=== PATIENT | female | born 1975 | race Caucasian/White ===

== ENCOUNTER → 2017-07-28 07:31 | Outpatient (CLI) | payer OTHER, SELFPAY ==
--- NOTE | 2017-07-28 07:33 | CT_ITS ---
STUDY: CT SCAN HIP LEFT REASON FOR EXAM: Female, 41 years old. Left hip dysplasia and prior surgeries. RADIATION DOSAGE (If Supplied By Facility): CTDIvol = ( 13.23 ) mGy, DLP = ( 422.75 ) mGycm. Individualized dose optimization techniques were used for this CT.? TECHNIQUE: Multiple axial tomographic images of the left hip joint were obtained without intravenous contrast administration. Coronal and sagittal reconstruction was obtained. 3-D rendering of the hip was obtained as well. COMPARISON: None. FINDINGS: There is cephalic migration of the proximal left femur. There is evidence of a neoacetabulum along the lateral aspect of the left iliac bone. Marked degree of degenerative changes of the femoral head with subchondral geodes and the marginal degenerative spur formation. Subchondral sclerosis of the left iliac bone. Screw fixation is seen in the proximal shaft of the left femur. CT/Extremity Lower without Contra IMPRESSION: Cephalic migration of the proximal left femur with a medial acetabulum formation along the lateral aspect of the left ilium with a marked degree of joint space narrowing and subchondral sclerosis and geode formation. Marginal osteophytes seen along the femoral head. Electronically Signed: Clifton Noel MD at 12:38 EDT Tel [phone], Service support ,
--- NOTE | 2017-07-28 07:34 | CT_ITS ---
STUDY: CT PELVIS WITHOUT CONTRAST REASON FOR EXAM: Female, 41 years old. Left hip dysplasia. RADIATION DOSAGE (If Supplied By Facility): CTDIvol = ( 28.21 ) mGy, DLP = ( 915.79 ) mGycm TECHNIQUE: Transaxial imaging of the pelvis was performed with oral contrast, and without intravenous administration of contrast material. Individualized dose optimization techniques were used for this CT. COMPARISON: None. FINDINGS: Normal urinary bladder. Normal visualized small intestine. Normal visualized colon. There is no pelvic fluid. There is no pelvic mass lesion or lymphadenopathy. Normal visualized pelvic arteries. Normal abdominal wall. Cephalic migration of the proximal left femur and dislocation of the hip joint. Marked degree of degenerative changes of the left femoral head and the medial acetabulum along the lateral aspect of the body of the left iliac bone. There is evidence of a degenerative spur formation as well as subchondral geodes. CT/Pelvis without IV Contrast IMPRESSION: Deformity of the proximal left femur with a cephalic dislocation and the neoacetabulum formation with marked degree of degenerative changes of the left hip. Electronically Signed: Clifton Noel MD at 12:41 EDT Tel [phone], Service support ,
--- NOTE | 2017-07-28 08:37 | CT_ITS ---
STUDY: CT SCAN HIP LEFT REASON FOR EXAM: Female, 41 years old. Left hip dysplasia and prior surgeries. RADIATION DOSAGE (If Supplied By Facility): CTDIvol = ( 13.23 ) mGy, DLP = ( 422.75 ) mGycm. Individualized dose optimization techniques were used for this CT.? TECHNIQUE: Multiple axial tomographic images of the left hip joint were obtained without intravenous contrast administration. Coronal and sagittal reconstruction was obtained. 3-D rendering of the hip was obtained as well. COMPARISON: None. FINDINGS: There is cephalic migration of the proximal left femur. There is evidence of a neoacetabulum along the lateral aspect of the left iliac bone. Marked degree of degenerative changes of the femoral head with subchondral geodes and the marginal degenerative spur formation. Subchondral sclerosis of the left iliac bone. Screw fixation is seen in the proximal shaft of the left femur. CT/Coronals Sag Multi Obl 3-D Rec IMPRESSION: Cephalic migration of the proximal left femur with a medial acetabulum formation along the lateral aspect of the left ilium with a marked degree of joint space narrowing and subchondral sclerosis and geode formation. Marginal osteophytes seen along the femoral head. Electronically Signed: Clifton Noel MD at 12:38 EDT Tel [phone], Service support ,
== END ==
PROVIDERS: Family Provider Preventive Medicine Occupational Medicine; PCP Preventive Medicine Occupational Medicine; Visit Provider Specialist
DX: M16.32 Unilateral osteoarthritis resulting from hip dysplasia, left hip (principal)
CPT/HCPCS: 72192; 73700; 76377

== ENCOUNTER → 2017-09-29 10:15 | Outpatient (CLI) | payer OTHER, SELFPAY ==
--- NOTE | 2017-09-29 10:20 | RAD_ITS ---
STUDY: LEG LENGTH STUDY REASON FOR EXAM: Female, 42 years old. Osteoarthritis resulting from left hip dysplasia TECHNIQUE: Frontal views of the lower extremities were obtained with measurement markers in place. COMPARISON: CT 07/28/2017 FINDINGS: On the right, the lower extremity from the upper aspect of the femoral head to the tibial plafond measures 80 cm. On the left, the lower extremity from the upper aspect of the femoral head to the tibial plafond measures 81 cm. However, from the level of the contralateral upper femoral head to the level of the ipsilateral tibial plafond, the measurement is 75.5 cm. Hardware in the proximal left femur. Dysplasia of the left femoral head and neck. Chronic superior displacement with ischial pseudoarticulation above the acetabulum. RAD/Bone Length IMPRESSION: As above. Electronically Signed: Louis Castro MD at 4:03 EDT Tel , Service support ,
== END ==
PROVIDERS: Family Provider Preventive Medicine Occupational Medicine; PCP Preventive Medicine Occupational Medicine; Visit Provider Specialist
DX: M16.32 Unilateral osteoarthritis resulting from hip dysplasia, left hip (principal)
CPT/HCPCS: 77073

== ENCOUNTER 2017-10-06 10:31 | Inpatient (IN) | payer OTHER, SELFPAY ==
[2017-09-20 14:59] VITALS: BP 136/91; PULSE 91; RESP 16; TEMP 36.9; O2SAT 99; BMI 30.5
--- NOTE | 2017-09-20 15:23 | SDCEKG_ITS ---
Test Reason : Blood Pressure : / mmHG Vent. Rate : 078 BPM Atrial Rate : 078 BPM P-R Int : 170 ms QRS Dur : 086 ms QT Int : 358 ms P-R-T Axes : 056 047 010 degrees QTc Int : 408 ms Normal sinus rhythm Normal ECG Confirmed by THOM ROMERO, JOSÉ MANUEL ([id number]), film and video editor JUANA MILLER ([id number]) on 09/22/2017 2:37:05 PM Referred By: Alonso Gillespie Confirmed By:JOSÉ MANUEL TOMAS MD
[2017-09-20 15:53] LABS: Absolute Lymphocyte Count 1.42 X10^3/ul (0.83-4.51); Absolute Neutrophil Count 4.4 X10^3/uL (2.0-7.7); Basophil# 0.01 X10^3/uL; Basophil% 0.2 % (0-1); Eosinophils% 1.6 % (0-5); Hematocrit 38.7 % (37-47); Hemoglobin 12.4 g/dl (12.0-15.0); Lymphocyte # 1.42 X10^3/ul (4.0); Lymphocyte % 22.6 % (19-41); Mean Corpuscular Hgb 27.1 pg (27.0-32.0); Mean Corpuscular Volume 84.7 fL (81-99); Mean Platelet Vol. 10.6 fl (6.2-12.0); Monocyte# 0.41 X10^3/uL; Monocyte% 6.5 % (0-10); Neutrophil # 4.35 X10^3/uL (2.7-7.7); Neutrophil % 69.1 % (47-70); Platelet Count 252 K/mm3 (150-450); RBC Distribution Width CV 13.9 % (11.6-14.6); RBC Distribution Width SD 43.3 fl (35.1-43.9); Red Blood Count 4.57 M/mm3 (4.2-5.4); White Blood Count 6.3 K/mm3 (4.4-11.0)
[2017-09-20 15:58] LABS: Anion Gap 6 (5-15); BUN 9 mg/dL (7-18); BUN/Creat Ratio 16.2 RATIO (10-20); Calcium,Total 8.8 mg/dL (8.5-10.1); Chloride 106 mmol/L (98-107); Creatinine, Serum 0.55 mg/dL (0.55-1.02); EST Glomerular Filtration Rate 129 mL/min (>60); Est Glom Filt Rate - Afr Amer 156 mL/min (>60); Estimated Creatinine Clearance 107.54 ml/min; Glucose 88 mg/dL (74-106); Potassium 4.1 mmol/L (3.5-5.1); Sodium Level 139 mmol/L (136-145)
[2017-09-20 16:04] LABS: POSITIVE COUNT NO; POSITIVE DIFFERENTIAL NO; POSITIVE MORPHOLOGY NO
--- NOTE | 2017-09-23 10:39 | PCM.HP.BLA ---
History and Physical DATE OF SURGERY: 10/06/2017 SCHEDULED PROCEDURE: Left total hip arthroplasty, posterior approach HISTORY OF PRESENT ILLNESS: This is a 42-year-old female who is been having ongoing pain in her left hip since . Patient was born with hip dysplasia and has gone under multiple surgeries as a child. Patient states her pain is constant, aching, sharp, and sore. The pain is dependent upon the activity and weather. She does report pain going up and down stairs, walking any amount of distance, and sitting for extended periods of time. Patient does report pain but complains more of lack of function and has difficult time with activities of daily living. Patient has difficult time tying her shoes bathing and showering, and difficulty of bending at the left hip. Patient does have start up pain. Pain is located in the left groin. Patient does note the left leg is shorter than the right. She has used a shoe lift in the past. Patient has tried conservative measures consisting of rest, heat, and elevation with temporary relief. Patient has been through physical therapy after previous surgeries as well as continued with home exercises. She has tried oral medications consisting of Advil which she has not seen any significant relief. She is also tried Tylenol with no significant relief. Patient has tried orthotics and shoe lift with no relief in symptoms. Patient currently denies any chest pain, shortness of breath, fevers chills, or recent infections. She has undergone CT scan of the hip. After failing conservative measures and discussing all treatment options with Dr. Gillespie, the patient would like to proceed with a left total hip arthroplasty posterior approach. We are obtaining surgical clearance from her primary care physician Dr. Brambila. Patient does not have any significant medical history. REVIEW OF SYSTEMS: ROS: Const: Denies change in appetite, fever, hard of hearing, vision problems and weight change CV: Denies chest pain, heart murmur, irregular heartbeat and peripheral vascular disease. Resp: Denies asthma, cough, pneumonia, sleep apnea, SOB, tuberculosis and wheezing. GI: Denies constipation, diarrhea, difficulty swallowing, heartburn, nausea, bloody stools and vomiting. : . (F Genital Sx) Urinary: denies incontinence. Musculo: Reports trouble walking, but denies leg swelling, limp and weakness. Skin: Denies Raynaud's, history of shingles and tattoo. Neuro: Denies ambulatory dysfunction, dizziness, numbness/tingling and tremor. Psych: Denies anxiety, depression, insomnia, mental illness and stress. Omari/Lymph: Denies anemia, bleeding/bruising tendency and past transfusion. Reviewed, no changes. PAST MEDICAL HISTORY: Advance Care Plan: No Advance Directives Effective Date: 12/22/2016 PMH: Medical Problems: Arthritis LT Hip Dysphasia - AT Accidents: None Surgical Hx: Tonsils & Adenoids - (1986) [facility] LT Hip Surgeries - (1980) PLATES/SCREWS RT Knee - TO STOP GROWTH RT Breast Lump Removed Anesthesia Complications: Vomiting Assistive Devices: Glasses Reviewed, no changes. SOCIAL HISTORY: SH: Marital: .Occupation: [employer].Work Status: Currently Working.Hand Dominance: Right-handed. Personal Habits: Smoking: Patient has never smoked.Cigarette Use: Never Smoked Cigarettes.Alcohol: Occasionally.Drug Use: Denies Use.Enjoy Exercising: Exercises 1-3 X/Week. Reviewed and updated. VITALS: Ht: 6.5 Wt: 173lb Wt k.473 BMI: 2878.6 BP: 150/86 Pulse: 70 Resp: 16 T: 9.1 T: -12.7C ALLERGIES: No Known Drug Allergy MEDICATIONS: No Active Medications PRE-OP EXAM: General appearance:NORMAL Other: Eyes: Conjunctivae and lids: NORMAL Pupils: ERR Ears, Nose, Mouth, and Throat: NORMAL Other: Inspection of lips, teeth and gums: NORMAL Other: Neck: Examination of neck: no masses noted. Respiratory: Assessment of respiratory effort: NORMAL Other: Auscultation of lungs: clear to auscultation no wheezes, rhonchi or rales. Cardiovascular: Auscultation of heart: regular rate and rhythm, no murmurs, gallops or rubs. Exam of carotid arteries: NORMAL Other: Gastrointestinal: Exam of abdomen: soft, nontender, nondistended bowel sounds present. PHYSICAL EXAMINATION: Patient walks with an antalgic gait. Previous incisions on the left hip are well-healed with no evidence of any erythema or signs of infection. Hip flexion is limited as well as internal and external rotation. Patient does have a 2 cm leg length discrepancy on the left. Sensations intact light touch. IMAGING STUDIES: 1. 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 There is previous hardware in the proximal femoral shaft subtrochanteric area. 2. CT scan was obtained at [facility] which does reveal type for Angeline dysplasia. There does appear to be adequate bone stock for acetabular component. There is anterior lateral plate which will need to be removed on the femur. IMPRESSION: 1. 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 Gillespie did discuss and review with the patient all treatment options including surgical versus nonsurgical. Patient wishes to proceed with above-stated procedure. Potential risks, benefits, and complications of this procedure were discussed in detail including but not limited to , infection, nerve and blood vessel damage, persistent pain, numbness, tingling, paresthesias, blood clot, pulmonary embolism, and requirement for further surgery. The patient expressed full understanding has no further questions for the doctor. Patient does agree to proceed with the above-stated procedure and has signed the surgery consent form. ___ I have re-examined the patient. There are no clinical changes since date of exam. ___ See progress notes for changes. ___ Dictated on admission Date: Time: Signature:
--- NOTE | 2017-10-01 15:24 | CASEMGMT ---
Addendum entered by Gregoria Stiles 10/01/17 16:06: Patient return call. Patient states that she has a walker and raised toilet seat at home. Patient lives with in a ranch style home with 2 steps to enter. Patient states that she is setup with [facility] for outpatient therapy with providing transportation. Original Note: GLENDY PÉREZ attempted to call patient regarding discharge needs after upcoming surgery. No answer, voice message left with return contact information. Per patient pre-admission assessment, patient wishes to return home with assistance from . GLENDY PÉREZ will follow up with patient after surgery and will assist with discharge needs.
[2017-10-06] VITALS (10 sets, daily range): BP systolic 93–213; BP diastolic 62–180; PULSE 84–114; RESP 16–22; TEMP 35.8–37.4; O2SAT 96–100; BMI 32.1
[2017-10-06] MEDS: Acetaminophen 500 MG Tablet 1000 MG PO ×2 (11:45→23:20)
[2017-10-06] MEDS: oxyCODONE HCl Cr 10 MG Tablet PO (11:46)
[2017-10-06] MEDS: Celecoxib 200 MG Capsule 400 MG PO (11:46)
[2017-10-06 12:18] LABS: Internal QC Validated? YES +Cl - CLEAR BKGD; Pregnancy, Urine Negative Negative
--- NOTE | 2017-10-06 13:15 | OP.PCM_ITS ---
Report of Operation Date of Procedure: 10/06/17 Pre-Operative Diagnosis: Secondary left hip osteoarthritis, dysplasia. Lower extremity leg length discrepancy Post-Operative Diagnosis: Secondary left hip osteoarthritis, dysplasia. Left lower extremity leg length discrepancy Surgery/Procedure Performed:: 1. Left hip conversion of previous hip surgery to total hip replacement, posterior approach. 2. Left femur subtrochanteric osteotomy Description of Surgical Findings:: Well reduced hip with 2 cm subtrochanteric osteotomy linux network administrator: Blue Gannon Type of Anesthesia:: Spinal Anesthesiologist: Moris Ortiz Special Medications: 2 g Ancef, 1 g TXA at incision, 1 g TXA closure, 10 mg Decadron, joint cocktail (5 mg Duramorph, 30 mL of 0.5% Ropivicaine, 1000 units of epinephrine, 30 mg of Toradol) Specimen's removed: Bony cuts Estimated Blood Loss (mL): 750 Fluids Replaced: 3000 mL crystalloid, 290 mL Cell Saver Description of Procedure: Findings: Adequate reduction with stability of the hip and equal leg lengths measured intraoperatively. Components used: 1. ExacTech series M 11 mm distal stem, 21 mm small body, -5 12/14 taper low offset neck 2. Roque trident 46 mm acetabular shell 2 screws 3. Roque X3 polyethylene liner, alpha code c 4. ExacTech Biolox delta ceramic 28 mm, -5 mm femoral head Brief history operative indications: 82-year-old female presented to my office with history of left hip dysplasia previous femoral osteotomy. Patient had severe arthrosis and nightmute type IV dysplasia. She has a scanogram radiograph which was consistent with 4.5 cm leg length discrepancy. Risks and benefits were discussed with the patient which included but were not limited to blood loss, DVTs, PEs, infection, neurovascular damage, and dislocation. In particular we discussed with this patient the risk of nerve injury with over lengthening her leg. At this time we have elected to proceed with a subtrochanteric osteotomy. In light of all this patient did agree to proceed with a total hip arthroplasty. Procedure: On the date of procedure the patient's L hip was marked in the preoperative area. Patient was then taken back to the operating room where anesthesia assumed control of the C-spine and airway and administered anesthetic. Patient was transferred to the operating table and placed in the lateral decubitus position with the affected hip up. The patient was secured in the bed with the lateral positioners and leg lengths were checked. The L lower extremity was then prepped out in a sterile fashion using chlorhexidine while the surgeon scrubbed. Upon reentering the room the L lower extremity was draped in the standard orthopedic fashion and the incision was marked. A timeout was called and everyone agreed upon the side, the site, the procedure be performed, antibiotics given, and patient's identity. At this time incision was made through skin, subcutaneous tissue, and fat down to fascia. The fascia was then incised and a Charley retractor was placed. The soft tissue was then cleared from the posterior external rotators and the piriformis was identified. Piriformis was taken down and tagged. The remainder of the short external rotators were taken down. Capsulotomy was made and the posterior capsule was tagged. The retractors were then placed inside the capsule. The femoral neck was identified and a cleanup cut was made. At this time a power corkscrew was used to remove the femoral head. At this time all bony debris was removed from the acetabulum. Attention was then turned to the femur where the proximal femur was appropriately exposed using a jones retractor. We then directed our attention to the proximal femur and retracted the vastus lateralis anteriorly in order to remove the anterior lateral plate. Osteotome was used to expose the plate and once a 4 screws were identified they were removed using the hex head screwdriver. Plate was then removed using an osteotome. At this time we directed our attention back towards the proximal femur where we reamed to 11.5 mm for an 11 mm stem. We then prepared the proximal femur for the 21 mm small body machining the metaphysis. Once this was completed a trial was placed to ensure a good fit. Trial was then removed and our attention was directed towards the acetabulum. Our attention was then directed to the acetabulum and the anterior retractor was placed and a Zelpi was used to retract the posterior capsule superiorly. True acetabulum was identified and all soft tissue debris was removed from the pulvinar and labrum of the joint. 5 x-ray was used to verify a true acetabulum and we again reaming. The acetabulum was then sequentially reamed to a 45 millimeters. At this time a and 46 mm Adamant trident cup was opened and impacted into place. The Au Franc guide was then used to verify the position of the cup once we verified it was in appropriate anteversion and abduction live x-ray was also used to verify position of the cup. 2 screws were placed in the safe zone and the acetabular liner was impacted into place. Once it was securely fastened our attention was again turned towards the femur where using our preoperative template and judging for the reduction of the joint we elected to proceed with a 2 cm transverse osteotomy. Once we made the osteotomy a clamshell osteotomy was made at the bone. The trial components were then put in place after cerclage wire was placed over the distal portion of the osteotomy proximally and the distal portion was reamed in preparation for the entire stem. The hip was properly reduced using traction and external rotation. Mesa of the hip took several attempts with sequential releases each time we attempted a reduction. Stability was checked with the appropriate amount of shuck, no impingement with external rotation, and stable at 90? flexion and 90? internal rotation. Leg lengths were checked and were found to be centimeter different on the table. Once the hip was determined to be stable the trial components were dislocated. The proximal femur was again exposed and the components were removed from the wound. The final components were verified and opened. The wound was copiously irrigated out with normal saline. The acetabulum was checked for any residual debris. The final components were placed and impacted. Traction and external rotation were again used to reduce the hip. After adequate reduction the hip remained stable with appropriate leg lengths. The wound was then copiously irrigated with normal saline once more, and hemostasis was obtained. 1 g of vancomycin powder was again placed in the wound. The posterior capsule and piriformis could not be repaired due to chronic shortening. Closure was then done using #1 Vicryl to close the deep fascia and tensor fascia. A 2-0 Vicryl interrupted sutures were used to close the subcutaneous skin. Skin senthil were used for final skin closure. A sterile dressing was placed. Patient was awakened by anesthesia and transferred to the [facility]. Patient was then transferred to the PACU for recovery. Postoperative plan: Patient will get 24 hours postop antibiotics. Patient will get in-house physical therapy and will be touchdown weightbearing for 6 weeks with strict posterior hip precautions. Patient will follow up in office in 2 weeks for a wound check and x-rays. During the course of the procedure the physician engineer second assistant played a vital role. His intimate knowledge of my steps in the procedure aided in safe and expedient completion of the procedure. The PA played a vital rolls in positioning particularly in obtaining the appropriate positioning of the sacral bump. The PA was also vital in the retraction of soft tissues during the exposure and especially the femoral work as this is a vital part of the procedure to prevent complications and fractures. The PA was also vital and protecting soft tissues during times of bony cuts and reaming. He also played a vital role in closure with my direct supervision. The PA was also important during reduction and dislocation of the joint and trials intraoperatively. This case took 4-1/2 hours. This is based on the patient's severe dysplasia and contractures which required significant releasing throughout the procedure. Also required significant time to remove the plate as there was bone overgrowth of the plate from pediatric surgery. Normal conversion of previous hip surgery total hip replacement takes 2 hours. Grafts/Implants Used: ExacTech stem, Roque cup - Complications None - Admit VTE Documentation VTE Present on Admission: No VTE Mechan Device Prophylaxis: SCD's, Thigh High ARAM Hose VTE Pharm Prophylaxis ordered?: Yes
[2017-10-06] MEDS: Cefazolin 2 GM in 0.9% Normal Saline 100 ML IV (13:16)
[2017-10-06] MEDS: Heparin 10,000 UNITS/10 ML Vial 10000 UNITS (13:48)
--- NOTE | 2017-10-06 14:22 | RAD_ITS ---
STUDY: X-RAY - PELVIS AND RIGHT HIP REASON FOR EXAM: Female, 42 years old. Posterior total hip replacement. TECHNIQUE: Radiological exam, hip, unilateral, with pelvis when performed; 1 view COMPARISON: None. FINDINGS: Intraoperative imaging provided for posterior right hip replacement. RAD/Hip 1 view with Pelvis IMPRESSION: Intraoperative imaging provided for posterior hip replacement. Electronically Signed: Clifton Noel MD at 7:57 EDT Tel [phone], Service support ,
[2017-10-06 15:17] LABS: Hematocrit 29.4 % (37-47); Hemoglobin 9.8 g/dl (12.0-15.0)
--- NOTE | 2017-10-06 17:40 | RAD_ITS ---
STUDY: X-RAY - PELVIS AND LEFT HIP REASON FOR EXAM: Female, 42 years old. POST OP LEFT POSTERIOR TOTAL HIP TECHNIQUE: Radiological exam, hip, unilateral, with pelvis when performed; 1 view COMPARISON: None. FINDINGS: There is no fracture or dislocation. There is anatomic alignment. The soft tissue planes are preserved. Total hip arthroplasty. Skin senthil are seen along the anterior lateral aspect of the hip. There is an air-fluid level seen in the operative site. Joint space is preserved. Subcutaneous air is noted. Cerclage wire visualized along the proximal femur. IMPRESSION: Successful total hip arthroplasty. Electronically Signed: Merrick Guido MD at 20:44 EDT , Service support , RAD/Hip Min 2 Views (Portable)
[2017-10-06] MEDS: Lactated Ringers 1,000 ML 125 ML IV (18:52)
[2017-10-06] MEDS: Cefazolin 1 GM/50 ML BAG IV (21:24)
[2017-10-06] MEDS: Ondansetron 4 MG/2 ML Vial IV (23:15)
[2017-10-06] MEDS: Senna/Docusate Sodium 1 Tablet 2 TABLET PO (23:20)
[2017-10-07] VITALS (15 sets, daily range): BP systolic 89–155; BP diastolic 55–88; PULSE 75–102; RESP 16–18; TEMP 36.7–37.6; O2SAT 96–100
[2017-10-07] MEDS: Lactated Ringers 1,000 ML 125 ML IV (02:26)
[2017-10-07 05:43] LABS: Hematocrit 24.2 % (37-47); Hemoglobin 7.7 g/dl (12.0-15.0); Mean Corp Hgb Conc 31.8 g/gl (32-36); Mean Corpuscular Hgb 27.8 pg (27.0-32.0); Mean Corpuscular Volume 87.4 fL (81-99); Mean Platelet Vol. 10.8 fl (6.2-12.0); Platelet Count 200 K/mm3 (150-450); RBC Distribution Width CV 13.7 % (11.6-14.6); RBC Distribution Width SD 42.4 fl (35.1-43.9); Red Blood Count 2.77 M/mm3 (4.2-5.4); White Blood Count 11.6 K/mm3 (4.4-11.0)
[2017-10-07 05:45] LABS: Scan Indicated on CBC? Y/N NO
[2017-10-07] MEDS: Cefazolin 1 GM/50 ML BAG IV (05:49)
[2017-10-07] MEDS: Acetaminophen 500 MG Tablet 1000 MG PO ×3 (05:49→21:26)
[2017-10-07] MEDS: 0.9% NaCl Peripheral Flush Adult/Peds IV ×2 (05:49→21:27)
[2017-10-07 06:02] LABS: Anion Gap 5 (5-15); BUN 9 mg/dL (7-18); BUN/Creat Ratio 15.6 RATIO (10-20); Calcium,Total 6.9 mg/dL (8.5-10.1); Chloride 109 mmol/L (98-107); Creatinine, Serum 0.58 mg/dL (0.55-1.02); EST Glomerular Filtration Rate 123 mL/min (>60); Est Glom Filt Rate - Afr Amer 149 mL/min (>60); Estimated Creatinine Clearance 101.98 ml/min; Glucose 128 mg/dL (74-106); Potassium 4.1 mmol/L (3.5-5.1); Sodium Level 141 mmol/L (136-145)
[2017-10-07] MEDS: Ondansetron 4 MG/2 ML Vial IV (06:28)
[2017-10-07] MEDS: Famotidine 20 MG Tablet PO (08:33)
[2017-10-07] MEDS: Senna/Docusate Sodium 1 Tablet 2 TABLET PO ×2 (08:33→21:27)
--- NOTE | 2017-10-07 09:15 | PCM.PN.ORT ---
Subjective: The patient was sitting in bedside chair upon examination. Patient denies any chest pain, shortness of breath, nausea or vomiting, or calf pain. Pain is controlled on medications. No adverse overnight events. Patient's hemoglobin has dropped to 7.7. She is currently experiencing dizziness and lightheadedness when transferring from bed to bedside chair. She feels fatigued and is currently pale. Patient's calcium has also dropped to 6.9. Patient does complain of pain in the back of the knee but states hip pain is well controlled on medications. Objective: Vital signs stable and afebrile. Patient is able to plantarflex and dorsiflex actively. Sensation is intact to light touch to saphenous, sural, superficial and deep peroneal, and tibial distribution. Dressing is clean dry and intact. Negative Homans bilaterally, negative signs and symptoms of DVT. - Physical Exam General: Alert, Oriented x3, Cooperative, No apparent distress Vital Signs Temp Pulse Resp BP Pulse Ox 98.1 F 86 18 108/59 L 98 10/07/17 08:31 10/07/17 08:31 10/07/17 08:31 10/07/17 08:31 10/07/17 08:31 Oxygen Flow Rate (L/min) 2 Oxygen Delivery Method Room Air Weight: 79.832 kg Body Mass Index (BMI) 32.1 Intake and Output for Last 24 Hours 10/05/17 10/06/17 10/07/17 23:59 23:59 23:59 Intake Total 3200 / 3200 2132 / 2132 Output Total 550 / 550 Balance 3200 / 3200 1582 / 1582 Laboratory Tests Past 24 Hrs 10/06/17 10/06/17 10/06/17 12:10 14:55 14:55 WBC RBC Hgb 9.8 L Hct 29.4 L MCV MCH MCHC RDW RDW Differential Plt Count MPV Sodium Potassium Chloride Carbon Dioxide Anion Gap BUN Creatinine Estim Creat Clear Calc Est GFR (MDRD) Af Amer Est GFR (MDRD) Non-Af BUN/Creatinine Ratio Glucose Calcium Troponin I Urine Test Negative Blood Type A POSITIVE Antibody Screen NEGATIVE 10/06/17 10/07/17 10/07/17 19:03 05:08 05:08 WBC 11.6 H RBC 2.77 L Hgb 7.7 L Hct 24.2 L MCV 87.4 MCH 27.8 MCHC 31.8 L RDW 13.7 RDW Differential 42.4 Plt Count 200 MPV 10.8 Sodium 141 Potassium 4.1 Chloride 109 H Carbon Dioxide 27.0 Anion Gap 5 BUN 9 Creatinine 0.58 Estim Creat Clear Calc 101.98 Est GFR (MDRD) Af Amer 149 Est GFR (MDRD) Non-Af 123 BUN/Creatinine Ratio 15.6 Glucose 128 H Calcium 6.9 L Troponin I < 0.015 Urine Test Blood Type Antibody Screen Medical Necessity - Tobacco Use Smoking Status: Never smoker Assessment/Plan 1. S/P left hip conversion of previous hip surgery to total hip replacement posterior approach and left femur sub-trochanteric osteotomy POD #1 2. Continue Pain Medications: Tylenol and OxyIR 3. DVT Prophylaxis: Aspirin 325 mg twice daily 4. PT/OT: Toe-touch weightbearing ?6 weeks with walker 5. H & H: 7.7/24.2, currently with dizziness, lightheadedness, fatigue, and pale skin. Patient did have hypotension overnight. Case was discussed with Dr. Gillespie and 2 units of packed red blood cells will be ordered. 6. Hypocalcemia: Currently 6.9 7. Leukocytosis: Currently 11.6, afebrile. Patient did receive Decadron intraoperatively 8. Consult for postoperative medical management per medicine: Case was discussed with Dr. Abbasi. 9. Encouraged Incentive Spirometry 10. Disposition: Plan will be for discharge home with home health care when medically ready.
--- NOTE | 2017-10-07 09:43 | PCM.PROGNOTE ---
Subjective: Hospitalist Consult: requested by Dr. Gillespie for hypocalcemia 42 YO female S/P L THR and L femur subtrochanteric osteotomy on 10/06. PMH is significant for left hip dysplasia, OA obesity. All lab, including Pre-op labs reviewed. Preoperative CBC and BMP done on 09/20/2017 were normal. CBC today shows an elevated white blood cell count at 11.6, hemoglobin of 7.7 and platelets of 200,000. She has normochromic normocytic indices with a normal RDW. Electrolytes are unremarkable and the BUN is 9 with a creatinine of 0.58. Calcium is low at 6.9. The albumin is 2.1 and the calcium corrected for hypoalbuminemia is 8.4 which is borderline low. EKG-normal sinus rhythm/normal She is afebrile and vital signs are stable. She is 96-98% saturated on room air. Denies muscle weakness, no complaints other than feeling tired and L leg pain - Physical Exam General: Alert, Oriented x3, Cooperative, - - looks pale HEENT: Atraumatic, PERRLA, EOMI, Normocephalic Oral: Dry Mucosa Neck: Supple, No JVD, Negative Carotid Bruits Lungs: Clear to auscultation, No rhonchi, No wheeze, No rales Cardiovascular: Regular rate, Regular Rhythm, Normal S1, Normal S2, No murmurs, No Gallop Abdomen: Bowel Sounds Present, Soft, Non Tender, Non-Distended Extremities: No clubbing, No cyanosis Skin: No rashes, No breakdown Neurological: Cranial nerves II-XII grossly intact, Neuro grossly intact Psych/Mental Status: Normal Affect, Appropriate Vital Signs Temp Pulse Resp BP Pulse Ox 98.1 F 86 18 108/59 L 98 10/07/17 08:31 10/07/17 08:31 10/07/17 08:31 10/07/17 08:31 10/07/17 08:31 Oxygen Flow Rate (L/min) 2 Oxygen Delivery Method Room Air Weight: 175 lb 15.991 oz Body Mass Index (BMI) 32.1 Intake and Output for Last 24 Hours 10/05/17 10/06/17 10/07/17 23:59 23:59 23:59 Intake Total 3200 / 3200 2132 / 2132 Output Total 550 / 550 Balance 3200 / 3200 1582 / 1582 Laboratory Tests Past 24 Hrs 10/06/17 10/06/17 10/06/17 12:10 14:55 14:55 WBC RBC Hgb 9.8 L Hct 29.4 L MCV MCH MCHC RDW RDW Differential Plt Count MPV Sodium Potassium Chloride Carbon Dioxide Anion Gap BUN Creatinine Estim Creat Clear Calc Est GFR (MDRD) Af Amer Est GFR (MDRD) Non-Af BUN/Creatinine Ratio Glucose Calcium Troponin I Urine Test Negative Blood Type A POSITIVE Antibody Screen NEGATIVE 10/06/17 10/07/17 10/07/17 19:03 05:08 05:08 WBC 11.6 H RBC 2.77 L Hgb 7.7 L Hct 24.2 L MCV 87.4 MCH 27.8 MCHC 31.8 L RDW 13.7 RDW Differential 42.4 Plt Count 200 MPV 10.8 Sodium 141 Potassium 4.1 Chloride 109 H Carbon Dioxide 27.0 Anion Gap 5 BUN 9 Creatinine 0.58 Estim Creat Clear Calc 101.98 Est GFR (MDRD) Af Amer 149 Est GFR (MDRD) Non-Af 123 BUN/Creatinine Ratio 15.6 Glucose 128 H Calcium 6.9 L Troponin I < 0.015 Urine Test Blood Type Antibody Screen Medical Necessity - Tobacco Use Smoking Status: Never smoker Assessment/Plan Impressions 1. hypocalcemia - mild with a corrected serum calcium of 8.4. The calcium looks very low because the albumin is only 2.1 and the correction for low albumin was not done by the lab. Calcium was normal pre-op and I have no suspicion that she has parathyroid gland dysfunction. Surgery itself can cause a mildly decreased calcium and so can blood loss and acid base disorders and ELYTE disturbances. She is to receive 2 units of PRBC's today and the citrate in blood products can cause a mild decrease in Calcium. Will check a mag and phos and supplement as needed. Recheck the lab in the AM. Start a PO calcium supplement. Code Visit Inpatient E&M: 25530 Subs Hosp L2
--- NOTE | 2017-10-07 09:58 | CASEMGMT ---
GLENDY PÉREZ Face to Face with patient for initial transition planning/care coordination assessment. GLENDY PÉREZ introduced self and role at [facility]. Patient sitting in chair, alert and oriented, at bedside. Patient willing to participate in assessment and is able to answer all questions appropriately. Care providers, pharmacy, and demographics verified. See link attached. Patient wishes to discharge home with [facility] after discussion with HERB Gannon. Patient has no preference for HHC and is agreeable to [facility]. Patient states she has no further needs or concerns at this time. GLENDY PÉREZ sent referral to [facility]. CM to follow for discharge planning needs that may arise. Disposition Plan: Patient to discharge home with [facility], family support, and follow-up plans in place
[2017-10-07 10:17] LABS: AST(SGOT) 31 U/L (15-37); Alanine Aminotransfer ALT/SGPT 15 U/L (13-56); Albumin, Serum 2.4 g/dL (3.2-5.0); Alkaline Phosphatase 28 U/L (45-117); Bilirubin, Direct 0.11 mg/dL (0.00-0.30); Globulin 2.1 g/dL (2.2-4.2); Protein, Total 4.5 g/dL (6.4-8.2)
[2017-10-07] MEDS: Aspirin 325 MG Tablet PO ×2 (11:16→16:03)
[2017-10-07 13:36] LABS: Magnesium 1.6 mg/dL (1.6-2.6); Phosphorus 3.1 mg/dL (2.5-4.9)
[2017-10-07] MEDS: Calcium Carbonate 500 MG Tablet PO (16:06)
[2017-10-07] MEDS: oxyCODONE 5 MG Tablet PO (16:58)
[2017-10-08 02:00] VITALS: BP 115/69; PULSE 85; RESP 17; TEMP 37.3; O2SAT 99
[2017-10-08] MEDS: Morphine 2 MG/ML Syringe IV (03:57)
[2017-10-08] MEDS: 0.9% NaCl Peripheral Flush Adult/Peds IV (03:57)
[2017-10-08] MEDS: Acetaminophen 500 MG Tablet 1000 MG PO ×2 (05:15→14:35)
[2017-10-08 06:41] LABS: Hematocrit 28.1 % (37-47); Hemoglobin 9.3 g/dl (12.0-15.0); Mean Corp Hgb Conc 33.1 g/gl (32-36); Mean Corpuscular Hgb 28.4 pg (27.0-32.0); Mean Corpuscular Volume 85.7 fL (81-99); Mean Platelet Vol. 10.6 fl (6.2-12.0); Platelet Count 175 K/mm3 (150-450); RBC Distribution Width CV 13.9 % (11.6-14.6); RBC Distribution Width SD 42.4 fl (35.1-43.9); Red Blood Count 3.28 M/mm3 (4.2-5.4); Scan Indicated on CBC? Y/N NO; White Blood Count 8.5 K/mm3 (4.4-11.0)
[2017-10-08 07:04] LABS: Albumin, Serum 2.4 g/dL (3.2-5.0); Anion Gap 6 (5-15); BUN 6 mg/dL (7-18); BUN/Creat Ratio 12.5 RATIO (10-20); Calcium,Total 7.3 mg/dL (8.5-10.1); Chloride 111 mmol/L (98-107); Creatinine, Serum 0.48 mg/dL (0.55-1.02); EST Glomerular Filtration Rate 152 mL/min (>60); Est Glom Filt Rate - Afr Amer 184 mL/min (>60); Estimated Creatinine Clearance 123.22 ml/min; Glucose 103 mg/dL (74-106); Potassium 3.5 mmol/L (3.5-5.1); Sodium Level 142 mmol/L (136-145)
--- NOTE | 2017-10-08 07:21 | PN.ORTHO_ITS ---
Subjective: The patient was sitting in bedside chair upon examination. Patient denies any chest pain, shortness of breath, dizziness, lightheadedness, nausea or vomiting , or calf pain. Pain is controlled on medications. No adverse overnight events. Overall patient feels better since getting 2 units of packed red blood cells. She denies any dizziness or lightheadedness. Her fatigue is significantly better. Patient's color has come back to her skin. Medicine was consulted for hypocalcemia. She is currently on p.o. calcium. Patient states she does continue to have groin pain on the left leg. The left knee pain is better. She does have difficult time with pain getting in and out of bed. Home health physical therapy has been set up. Objective: Vital signs stable and afebrile. Patient is able to plantarflex and dorsiflex actively. Sensation is intact to light touch to saphenous, sural, superficial and deep peroneal, and tibial distribution. Dressing is clean dry and intact. Negative Homans bilaterally, negative signs and symptoms of DVT. - Physical Exam General: Alert, Oriented x3, Cooperative, No apparent distress Vital Signs Temp Pulse Resp BP Pulse Ox 99.2 F H 85 17 115/69 99 10/08/17 02:00 10/08/17 02:00 10/08/17 02:00 10/08/17 02:00 10/08/17 02:00 Oxygen Flow Rate (L/min) 2 Oxygen Delivery Method Room Air Weight: 79.832 kg Body Mass Index (BMI) 32.1 Intake and Output for Last 24 Hours 10/06/17 10/07/17 10/08/17 23:59 23:59 23:59 Intake Total 3200 / 3200 7538 / 7538 120 / 120 Output Total 3750 / 3750 250 / 250 Balance 3200 / 3200 3788 / 3788 -130 / -130 Laboratory Tests Past 24 Hrs 10/06/17 10/07/17 10/07/17 14:55 05:08 05:08 WBC RBC Hgb Hct MCV MCH MCHC RDW RDW Differential Plt Count MPV Sodium Potassium Chloride Carbon Dioxide Anion Gap BUN Creatinine Estim Creat Clear Calc Est GFR (MDRD) Af Amer Est GFR (MDRD) Non-Af BUN/Creatinine Ratio Glucose Calcium Phosphorus 3.1 Magnesium 1.6 Total Bilirubin 0.50 Direct Bilirubin 0.11 AST 31 ALT 15 Alkaline Phosphatase 28 L Total Protein 4.5 L Albumin 2.4 L Globulin 2.1 L Crossmatch See Detail 10/08/17 10/08/17 06:34 06:34 WBC 8.5 RBC 3.28 L Hgb 9.3 L Hct 28.1 L MCV 85.7 MCH 28.4 MCHC 33.1 RDW 13.9 RDW Differential 42.4 Plt Count 175 MPV 10.6 Sodium 142 Potassium 3.5 Chloride 111 H Carbon Dioxide 25.0 Anion Gap 6 BUN 6 L Creatinine 0.48 L Estim Creat Clear Calc 123.22 Est GFR (MDRD) Af Amer 184 Est GFR (MDRD) Non-Af 152 BUN/Creatinine Ratio 12.5 Glucose 103 Calcium 7.3 L Phosphorus Magnesium Total Bilirubin Direct Bilirubin AST ALT Alkaline Phosphatase Total Protein Albumin 2.4 L Globulin Crossmatch Medical Necessity - Tobacco Use Smoking Status: Never smoker Assessment/Plan 1. S/P left hip conversion of previous hip surgery to total hip replacement posterior approach and left femur sub-trochanteric osteotomy POD #2 2. Continue Pain Medications: Tylenol and OxyIR 3. DVT Prophylaxis: Aspirin 325 mg twice daily 4. PT/OT: Toe-touch weightbearing ?6 weeks with walker 5. H & H: 9.3/28.1, currently with dizziness, lightheadedness, fatigue, and pale skin. Patient did have hypotension overnight. Case was discussed with Dr. Gillespie and 2 units of packed red blood cells will be ordered. 6. Hypocalcemia: Currently 7.3, medicine was consulted and patient has been placed on p.o. calcium. 7. Leukocytosis: Resolved currently 8.5, afebrile. Patient did receive Decadron intraoperatively 8. Consult for postoperative medical management per medicine: Case was discussed with Dr. Abbasi. Plan will be for patient to continue p.o. calcium and will recheck the BMP on follow-up in office. 9. Encouraged Incentive Spirometry 10. Disposition: Plan will be for possible discharge home today. Patient does wish to try to go home today for staying another night. If pain is controlled and patient is tolerating physical therapy and medicine feels patient is safe for discharge we are okay with this today. Prescriptions will be attached to chart. Patient will follow-up per postop instructions.
--- NOTE | 2017-10-08 07:24 | PCM.DC.THR ---
Discharge Diet: No Restrictions Discharge Activity: May Not Drive - while taking narcotic pain medications. May shower in (days): 1 - Turned dressing away from water Ice area for (Minutes): 20 - Every 1-2 hours while awake Weight Bearing Status: Toe touch weight bearing - With walker ?6 weeks postoperatively Additional Activity Instructions:: Wear elastic stockings for 2 weeks. DO NOT use alcohol with narcotic pain medication. DO NOT make important decisions while taking narcotic medication. If you have problems with taking your medication (rash, itching, nausea, etc.) call the office at once. Call your doctor if your incision/area has: Increased Pain/ Swelling, Increased Redness, Foul Smelling Discharge Call your doctor if you observe: Fever of 101 or Higher Remove Dressing in (days):: 3 - Okay to remove on October 11, 2017 Additional Instructions: Follow [place] [facility] postop instructions Continue posterior hip dislocation precautions ?3 months postoperatively: No flexion greater than 90? and no internal and external rotation of the hip. Continue calcium carbonate (Tums) for 2 weeks. Plan will be for recheck of BMP at postoperative follow-up Allergies/Adverse Reactions: Allergies No Known Allergies Allergy (Verified 09/20/17 14:57) Medications to take at Discharge Fluticasone 0.05% [Flonase Nasal [place]] 2 spray NASAL DAILY 09/20/17 Acetaminophen [Tylenol] 1,000 mg PO Q8 14 Days tablet 10/08/17 Aspirin 325 mg PO BIDCM #30 tab 10/08/17 Calcium Carbonate [Tums] 500 mg PO BIDCM tablet 10/08/17 Famotidine [Pepcid] 20 mg PO DAILY #30 tab 10/08/17 Oxycodone [Oxyir] 5 - 10 mg PO Q4H PRN PRN 7 Days #80 tab 10/08/17 Senna/Docusate Sodium [Senokot-S] 2 tab PO BID #20 tab 10/08/17 The following prescriptions were given: Oxycodone [Oxyir] 5 - 10 mg PO Q4H PRN PRN 7 Days #80 tab PRN Reason: Mod-Severe Pain (4-10/10) Famotidine [Pepcid] 20 mg PO DAILY #30 tab Aspirin 325 mg PO BIDCM #30 tab Senna/Docusate Sodium [Senokot-S] 2 tab PO BID #20 tab Primary Care Physician: José Miguel Morales DO [Primary Care Provider] - Please Follow Up With: Home health physical therapy Please Follow Up With: Alonso Gillespie MD When: 10/21/17 @ 3:00 pm
[2017-10-08] MEDS: oxyCODONE 5 MG Tablet PO ×2 (07:33→14:35)
[2017-10-08] MEDS: Aspirin 325 MG Tablet PO (07:35)
[2017-10-08] MEDS: Calcium Carbonate 500 MG Tablet PO (07:35)
[2017-10-08] MEDS: Ondansetron 4 MG/2 ML Vial IV (08:57)
[2017-10-08 09:02] VITALS: BP 123/73; PULSE 114; RESP 16; TEMP 36.7; O2SAT 99
--- NOTE | 2017-10-08 09:03 | NURSING ---
pt having emesis during therapy. vs wnl and medicated with zofran.
--- NOTE | 2017-10-08 09:44 | PCM.PROGNOTE ---
Subjective: All events of the past 24 hours have been reviewed. She is afebrile with stable vital signs. HR increased with effort. Pulse ox on room air is 99%. Denies muscle weakness or twitching. No problem swallowing. Feeling much better after the transfusion. Still with knee pain but getting around better. Hemoglobin today is 9.3 and platelets and white blood cell count are within normal limits. Calcium is 7.3 and the albumin is 2.4 making the corrected calcium 8.5 and this is low normal. The cement phosphorus were normal. Objective: - Physical Exam General: Alert, Oriented x3, Cooperative, - - looks pale HEENT: Atraumatic, PERRLA, EOMI, Normocephalic Oral: Dry Mucosa Neck: Supple, No JVD, Negative Carotid Bruits Lungs: Clear to auscultation, No rhonchi, No wheeze, No rales Cardiovascular: Regular rate, Regular Rhythm, Normal S1, Normal S2, No murmurs, No Gallop Abdomen: Bowel Sounds Present, Soft, Non Tender, Non-Distended Extremities: No clubbing, No cyanosis Skin: No rashes, No breakdown Neurological: Cranial nerves II-XII grossly intact, Neuro grossly intact Psych/Mental Status: Normal Affect, Appropriate - Physical Exam Vital Signs Temp Pulse Resp BP Pulse Ox 98.0 F 114 H 16 123/73 H 99 10/08/17 09:02 10/08/17 09:02 10/08/17 09:02 10/08/17 09:02 10/08/17 09:02 Oxygen Flow Rate (L/min) 2 Oxygen Delivery Method Room Air Weight: 175 lb 15.991 oz Body Mass Index (BMI) 32.1 Intake and Output for Last 24 Hours 10/06/17 10/07/17 10/08/17 23:59 23:59 23:59 Intake Total 3200 / 3200 7538 / 7538 120 / 120 Output Total 3750 / 3750 250 / 250 Balance 3200 / 3200 3788 / 3788 -130 / -130 Laboratory Tests Past 24 Hrs 10/06/17 10/07/17 10/07/17 14:55 05:08 05:08 WBC RBC Hgb Hct MCV MCH MCHC RDW RDW Differential Plt Count MPV Sodium Potassium Chloride Carbon Dioxide Anion Gap BUN Creatinine Estim Creat Clear Calc Est GFR (MDRD) Af Amer Est GFR (MDRD) Non-Af BUN/Creatinine Ratio Glucose Calcium Phosphorus 3.1 Magnesium 1.6 Total Bilirubin 0.50 Direct Bilirubin 0.11 AST 31 ALT 15 Alkaline Phosphatase 28 L Total Protein 4.5 L Albumin 2.4 L Globulin 2.1 L Crossmatch See Detail 10/08/17 10/08/17 06:34 06:34 WBC 8.5 RBC 3.28 L Hgb 9.3 L Hct 28.1 L MCV 85.7 MCH 28.4 MCHC 33.1 RDW 13.9 RDW Differential 42.4 Plt Count 175 MPV 10.6 Sodium 142 Potassium 3.5 Chloride 111 H Carbon Dioxide 25.0 Anion Gap 6 BUN 6 L Creatinine 0.48 L Estim Creat Clear Calc 123.22 Est GFR (MDRD) Af Amer 184 Est GFR (MDRD) Non-Af 152 BUN/Creatinine Ratio 12.5 Glucose 103 Calcium 7.3 L Phosphorus Magnesium Total Bilirubin Direct Bilirubin AST ALT Alkaline Phosphatase Total Protein Albumin 2.4 L Globulin Crossmatch Medical Necessity - Tobacco Use Smoking Status: Never smoker Assessment/Plan Impressions 1. hypocalcemia - mild with a corrected serum calcium of 8.4. The calcium looks very low because the albumin is only 2.1 and the correction for low albumin was not done by the lab. Calcium was normal pre-op and I have no suspicion that she has parathyroid gland dysfunction. Surgery itself can cause a mildly decreased calcium and so can blood loss and acid base disorders and ELYTE disturbances. She is to receive 2 units of PRBC's today and the citrate in blood products can cause a mild decrease in Calcium. Will check a mag and phos and supplement as needed. Recheck the lab in the AM. Start a PO calcium supplement. OK to DC home Would continue the Calcium supplement for the next 2 weeks and check a BMP at her next office visit. If it normal can DC the supplement Code Visit Inpatient E&M: 09635 Subs Hosp L2
[2017-10-08] MEDS: Senna/Docusate Sodium 1 Tablet 2 TABLET PO (10:41)
[2017-10-08] MEDS: Famotidine 20 MG Tablet PO (10:41)
[2017-10-08 15:22] VITALS: BP 112/69; PULSE 104; RESP 16; TEMP 37.3; O2SAT 99
== END 2017-10-08 17:47 | disposition home or self-care (01) | DRG 517 ==
PROVIDERS: Anesthesiology; Internal Medicine; Admitting Provider Specialist; Family Provider Preventive Medicine Occupational Medicine; PCP Preventive Medicine Occupational Medicine; Visit Provider Specialist
PROC: 0SRB0JZ Replacement of Left Hip Joint with Synthetic Substitute, Open Approach (ICD-10-PCS; CPT 27130; principal; 2017-10-06 12:15)
DX: M16.12 Unilateral primary osteoarthritis, left hip (principal); M21.70 Unequal limb length (acquired), unspecified site; E83.51 Hypocalcemia; Z96.642 Presence of left artificial hip joint
CPT/HCPCS: 36415; 73501; 73502; 76000; 80048; 80076; 81025; 82040; 83735; 84100; 84484; 85014; 85018; 85025; 85027; 86850; 86900; 86920; 86922; 87081; 93005; 97110; 97116; 97162; 97165; 97530; 97802; 99251; C1776; J7040; J7120; P9016; A4216; G0463; J2405

== ENCOUNTER 2019-12-23 11:39 | Emergency (ER) | payer OTHER, SELFPAY ==
[2019-12-23 11:39] VITALS: BP 170/101; PULSE 120; RESP 18; TEMP 36.8; O2SAT 99; BMI 34.7
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
--- NOTE | 2019-12-23 12:21 | ED.VIS.LOWEX ---
History of Present Illness Chief Complaint: Lower Extremity Injury Narrative: Patient presenting for evaluation secondary to a left leg injury. 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 Patient tells me that she suffered a trip and fall injury yesterday where she fell on her left knee, and then on her left hip. She does report that she was able to fully bear weight on that leg, but states that since then she has had increasing pain in that left knee specifically when she tries to flex the knee or palpate behind the knee. She denies that she has significant pain in her hip. Pain is worse again with palpation and movement. No numbness or weakness. She denies any other injuries. Review of systems otherwise negative. Past Medical History - Allergies and Home Meds Allergies/Adverse Reactions: Allergies No Known Allergies Allergy (Verified 12/23/19 11:39) Primary Care Physician: José Miguel Morales DO [Primary Care Provider] - Prior records reviewed: Yes Past Medical History: None Surgical History: - - Prior orthopedic issues Lives: Spouse/ Significant Other Smoking Status: Never smoker Alcohol: None Drugs: None Review of Systems All systems negative except as indicated General: Denies: Chills, Fever, Sweats Eyes: Denies: Visual changes - bilaterally, Diplopia ENT: Denies: Rhinorrhea, Sore throat Cardiovascular: Denies: Chest pain, Palpitations Respiratory: Denies: Dyspnea, Cough, Dyspnea on exertion Gastrointestinal: Denies: Abdominal pain, Nausea, Vomiting, Diarrhea, Melena, Hematochezia Genitourinary: Denies: Dysuria, Hematuria, Frequency Musculoskeletal: Reports: Extremity Pain Skin: Denies: Rash, Wounds Neurological: Denies: Headache, Weakness, Numbness Physical Exam Vital Signs/Narrative: Vital Signs Temp Pulse Resp BP Pulse Ox 12/23/19 11:39 98.3 F 120 H 18 170/101 H 99 - Extremity Exam Left Knee: - - Examination the patient's left lower extremity shows multiple scars over the patient's left thigh and hip that are old and well-healed. No tenderness to palpation or pain with range of motion of the hip. Knee exam shows evidence of ecchymosis over the patient's patella. There appears to be some swelling behind the knee. Limited flexion secondary to pain. Limited extension which the patient states is baseline secondary to her congenital hip problems and is unchanged. Unable to test joint laxity secondary to the patient's level of pain. Normal distal pulses and sensation. General: Well nourished, Well developed Head: Normocephalic, Atraumatic Eyes: EOMI ENT: No Trauma Neck: Nontender, Full ROM Cardiovascular: Regular rate, Regular rhythm, No murmurs, - - Patient was noted to be tachycardic upon arrival, on my physical exam the patient was not tachycardic and had a heart rate in the 90s Respiratory: No distress, CTA bilaterally, Chest nontender Abdomen: Soft Skin: Normal color, No rash Neurological: Alert, Oriented x3, Cranial nerves II-XII grossly intact, Normal Strength, Normal Sensation Psychological: Normal affect Diagnostic/Tx/Re-eval Clinical Impression(s) from Imaging Studies Hip/Pelvis X-Ray 12/23/19 11:59 IMPRESSION: No acute pathology of the pelvis and hip. Electronically Signed: Murali Sanders DO at 13:43 EDT Tel [phone], Service support , Knee X-Ray 12/23/19 11:59 IMPRESSION: A suprapatellar effusion is noted of the knee. Electronically Signed: Murali Sanders DO at 13:45 EDT Tel [phone], Service support , - Medical Decision Making Patient presented secondary to a lower extremity injury. Hip x-ray by my personal interpretation shows the patient's hardware, but no evidence of acute pathology. Knee x-ray by my interpretation as well as radiology shows a suprapatellar joint effusion, but no evidence of fracture or patellar disruption. Patient's mechanism does not really seem consistent with that that would cause a ligamentous injury to the knee. Patient will be given an Venkat wrap. Patient was recommended that should she continue to have significant pain she will need to follow-up with orthopedics for potential advanced imaging. She was recommended continued conservative management measures. She was discharged in stable condition. ED Disposition - Plan for ED Patient: Disposition: Home or Assisted Living Diagnosis: Contusion of left knee Instructions: ED Effusion Knee Referrals: Alonso Gillespie MD [STAFF PHYSICIAN] - 10-14 Days if not better
[2019-12-23] MEDS: Acetaminophen 500 MG Tablet 1000 MG PO (14:01)
== END 2019-12-23 14:02 | disposition home or self-care (01) ==
PROVIDERS: Emergency Provider Emergency Medicine; PCP Preventive Medicine Occupational Medicine
DX: S80.02XA Contusion of left knee, initial encounter (principal); W01.0XXA Fall on same level from slipping, tripping and stumbling without subsequent striking against object, initial encounter
CPT/HCPCS: 73502; 73564; 99283